=== PATIENT | male | born 1985 | race Caucasian/White ===

== ENCOUNTER 2019-01-07 16:43 | Emergency (ER) | payer BC ==
[2019-01-07 17:03] VITALS: BP 142/86
--- NOTE | 2019-01-07 17:46 | UC ---
Skin Complaint HPI - HPI Summary HPI Summary: 33-year-old male comes in with a chief complaint of a rash on his right upper thigh. 4 days ago he noticed what appeared to be a an insect bite on his right upper thigh. Since that time it has gotten red and the redness spreading. It' s hot to touch no drainage. No fevers or chills. Patient did not see a tick. There is no vesicles. No rashes anywhere else. Patient does feel some muscle pain when he moves his leg. No complaint of any abdominal pain. - History of Current Complaint Chief Complaint: UCSkin Time Seen by Provider: 01/07/19 17:36 Stated Complaint: BUG BITE GROIN AREA Pain Intensity: 0 - Allergy/Home Medications Allergies/Adverse Reactions: Allergies Allergy/AdvReac Type Severity Reaction Status Date / Time ibuprofen AdvReac See Comment Verified 01/07/19 17:04 Home Medications: Home Medications diPHENhydraMINE PO* [Benadryl PO 25 MG TAB*] 25 mg PO Q6H PRN 01/07/19 [History Confirmed 01/07/19] PMH/Surg Hx/FS Hx/Imm Hx Previously Healthy: Yes - Surgical History Surgical History: None - Family History Known Family History: Positive: Non-Contributory - Social History Alcohol Use: Weekly Substance Use Type: None Smoking Status (MU): Current Some Day Smoker Type: Cigars Review of Systems All Other Systems Reviewed And Are Negative: Yes Constitutional: Positive: Negative Skin: Positive: Other - SEE HPI Eyes: Positive: Negative ENT: Positive: Negative Respiratory: Positive: Negative Cardiovascular: Positive: Negative Gastrointestinal: Positive: Negative Motor: Positive: Negative Neurovascular: Positive: Negative Musculoskeletal: Positive: Myalgia - SEE HPI Neurological: Positive: Negative Psychological: Positive: Negative Is Patient Immunocompromised?: No Physical Exam Triage Information Reviewed: Yes Appearance: Well-Appearing, No Pain Distress, Well-Nourished Vital Signs: Initial Vital Signs Temp 99.4 F 01/07/19 16:58 Pulse 61 01/07/19 16:58 Resp 18 01/07/19 16:58 BP 142/86 01/07/19 16:58 Pulse Ox 100 01/07/19 16:58 Vital Signs Reviewed: Yes Eye Exam: Normal Eyes: Positive: Conjunctiva Clear Neck: Positive: Supple Respiratory: Positive: No respiratory distress Musculoskeletal: Positive: Strength Intact, ROM Intact Neurological: Positive: Alert Psychological: Positive: Age Appropriate Behavior Skin: Positive: Other - On the right upper inner thigh there is a 20 cm x 10 cm area of erythema. It started in the middle there is no necrosis there is no vesicles. No drainage. The limit of the erythema is approximately 5 cm from the inguinal fold. Course/Dx - Course Course Of Treatment: Going to start the patient on Keflex 500 mg tabs by mouth 4 times a day. I let the patient know that if he gets worse he sees any spread of the infection especially for goes into the inguinal area and groin of the abdomen or the scrotum or any fevers he feels ill he is to get reevaluated again right away in the emergency department. At this time here in clinic he is well-appearing there is no erythema in the inguinal fold. His vital signs are stable. Temperature is less than 100.4. - Diagnoses Provider Diagnosis: Cellulitis of right thigh Discharge - Sign-Out/Discharge Documenting (check all that apply): Patient Departure All imaging exams completed and their final reports reviewed: No Studies - Discharge Plan Condition: Stable Disposition: HOME Prescriptions: Cephalexin CAP* [Keflex CAP*] 500 mg PO QID #40 cap Patient Education Materials: Cellulitis (ED) Referrals: Jason LOPEZ,Lucero Ceron [Primary Care Provider] - Additional Instructions: FOLLOW UP WITH YOUR DOCTOR IF NOT COMPLETELY IMPROVED. GO TO THE EMERGENCY DEPARTMENT IF WORSE; FEVERS, CHILLS, SPREAD OF INFECTION ESPECIALLY INTO THE GROIN/ABDOMEN, YOU FEEL ILL OR ANY QUESTIONS OR CONCERNS. - Billing Disposition and Condition Condition: STABLE Disposition: Home
== END 2019-01-07 17:53 | disposition home or self-care (01) ==
LOC: UCCORT 16:43
DX: L03.115 Cellulitis of right lower limb (principal); F17.290 Nicotine dependence, other tobacco product, uncomplicated
CPT/HCPCS: 99202; G0463

== ENCOUNTER 2019-09-06 13:02 | Emergency (ER) | payer BC ==
[2019-09-06 13:55] VITALS: BP 128/76
--- NOTE | 2019-09-06 14:16 | UC ---
Eye Complaint HPI - HPI Summary HPI Summary: Since pt noticed RIGHT upper eyelid red, swollen and painful to touch which makes it worse, he's not sure what makes it better. denies vision changes.. Also noticed discharge from RIGHT eye past few days. Applied antibiotic cream on eyelid. - History of Current Complaint Chief Complaint: UCGeneralIllness Stated Complaint: EYE COMPLAINT Time Seen by Provider: 09/06/19 14:09 Hx Obtained From: Patient Pain Intensity: 4 - Allergies/Home Medications Allergies/Adverse Reactions: Allergies Allergy/AdvReac Type Severity Reaction Status Date / Time ibuprofen AdvReac See Comment Verified 09/06/19 13:50 Home Medications: Home Medications Albuterol HFA INHALER* [Ventolin HFA Inhaler*] 1 puff Q6HR PRN 09/06/19 [ History Confirmed 09/06/19] Bacitracin OPHTH.OINT* 1 applic .SEE ORDER TID 10 Days #1 oint 09/06/19 [Rx] PMH/Surg Hx/FS Hx/Imm Hx - Additional Past Medical History Additional PMH: no chronic illness Previously Healthy: Yes - Surgical History Surgical History: None - Family History Known Family History: Positive: Non-Contributory - Social History Alcohol Use: Weekly Substance Use Type: None Smoking Status (MU): Former Smoker Type: Cigars Review of Systems All Other Systems Reviewed And Are Negative: Yes Constitutional: Negative: Fever Eyes: Positive: Eye Redness - R eyelid. Negative: Blurred Vision, Drainage, Photophobia ENT: Negative: Nasal Discharge Physical Exam Triage Information Reviewed: Yes Appearance: Well-Appearing Vital Signs: Initial Vital Signs Temp 97.9 F 09/06/19 13:51 Pulse 56 09/06/19 13:51 Resp 16 09/06/19 13:51 BP 128/76 09/06/19 13:51 Pulse Ox 100 09/06/19 13:51 Vital Signs Reviewed: Yes Eyes: Positive: Conjunctiva Clear, Other: - Scleara unremarkable on R side but R upper eye lid tender, swollen, erythematous w/ no extension into crease or brow. No pain w/ EOM. PERRLA. Negative: Discharge Eye Complaint Course/Dx - Course Course Of Treatment: Uncomplicated blepharitis in R eye w/ no vision involvement. - Differential Dx/Diagnosis Differential Diagnosis/HQI/PQRI: Conjunctivitis, Periorbital Cellulitis, Other Provider Diagnosis: Blepharitis Discharge ED - Sign-Out/Discharge Documenting (check all that apply): Patient Departure All imaging exams completed and their final reports reviewed: No Studies - Discharge Plan Condition: Good Disposition: HOME Prescriptions: Bacitracin OPHTH.OINT* 1 applic .SEE ORDER TID 10 Days #1 oint Patient Education Materials: Blepharitis (ED) Referrals: Jason LOPEZ,Lucero Ceron [Primary Care Provider] - Additional Instructions: if WORSENING PLEASE SEE YOUR PRIMARY CARE - Billing Disposition and Condition Condition: GOOD Disposition: Home
== END 2019-09-06 14:34 | disposition home or self-care (01) ==
LOC: UCCORT 13:02
DX: H01.001 Unspecified blepharitis right upper eyelid (principal); Z88.6 Allergy status to analgesic agent; Z87.891 Personal history of nicotine dependence
CPT/HCPCS: 99212; G0463